=== PATIENT | male | born 1955 | race Caucasian/White ===

== ENCOUNTER 2024-02-17 10:08 | Emergency (ER) | payer MEDICARE, MEDICAID ==
[~2024-02-17] VITALS: Ht 180.3 cm; Wt 88.6 kg
[2024-02-17] MEDS ORDERED: AMOX500C2 PO (10:53)
[2024-02-17] MEDS ORDERED: AZIT500T9 PO (11:03)
[2024-02-17 11:18] VITALS: BP 120/85; PULSE 95; RESP 15; TEMP 98.5; O2SAT 99
== END 2024-02-17 11:21 | disposition home or self-care (01) ==
LOC: ER 10:09
DX: K00.6 Disturbances in tooth eruption (principal); K08.89 Other specified disorders of teeth and supporting structures; Z88.5 Allergy status to narcotic agent; Z79.2 Long term (current) use of antibiotics
CPT/HCPCS: 99283